=== PATIENT | male | born 1985 | race Caucasian/White ===

== ENCOUNTER → 2018-12-24 | Outpatient (CLI) | payer OTHER, SELFPAY ==
--- NOTE | 2018-12-24 14:30 | REP ---
Clinical: Trauma. Technique: AP, lateral, bilateral oblique views left wrist . Findings: The carpal bones, surrounding osseous structures, soft tissues, and joint spaces are normal. There is no evidence for acute fracture or dislocation. No subcutaneous emphysema or radiodense foreign body. Impression: Normal wrist series. No acute fracture or dislocation Electronically Signed by Nikko Lieberman MD 12/24/2018 02:21 P
== END ==
LOC: M LRY 14:02
PROVIDERS: ATTEND Nurse Practitioner Family
DX: S69.92XA Unspecified injury of left wrist, hand and finger(s), initial encounter (principal); X58.XXXA Exposure to other specified factors, initial encounter; Y92.89 Other specified places as the place of occurrence of the external cause

== ENCOUNTER → 2021-02-21 | Outpatient (CLI) | payer OTHER ==
--- NOTE | 2021-02-21 12:28 | REP ---
INDICATION: PAIN RIGHT KNEE. COMPARISON: None. TECHNIQUE: [place] view along with weightbearing AP and lateral views of the right knee FINDINGS: Increased sclerosis along the medial tibial plateau with joint space narrowing noted. Lateral and sunrise views demonstrate increased sclerosis along the anterior and posterior patellar margin marginal spurring and calcification at the quadriceps tendon insertion. No acute fracture or dislocation. No definite effusion. IMPRESSION: Moderate osteoarthritic degenerative changes. <Electronically signed by Nikko Lieberman > 02/21/21 [id number]
== END ==
LOC: M SOG 08:23
PROVIDERS: ATTEND Orthopaedic Surgery Adult Reconstructive Orthopaedic Surgery
DX: M25.561 Pain in right knee (principal); M17.11 Unilateral primary osteoarthritis, right knee

== ENCOUNTER → 2021-03-05 | Outpatient (CLI) | payer BC ==
--- NOTE | 2021-03-05 13:55 | REP ---
INDICATION: UNSP INTERNAL DERANGEMENT OF RT KNEE. COMPARISON: None TECHNIQUE: Sagittal spin-echo proton density, T2 STIR and T2 FLASH. Coronal spin-echo proton density and fat suppressed proton density. Axial fat suppressed proton density. FINDINGS: There is a single focus of grade 3 signal change in the superior tibial surface of the posterior horn of the medial meniscus. The anterior horn is within normal limits. The anterior and posterior horns of the lateral meniscus are within normal limits. The anterior and posterior cruciate ligaments are intact. The quadriceps and patellar tendons are intact. The medial and lateral collateral ligaments are intact. The medial and lateral patellar retinacula are intact. There is a slight joint effusion. There is no Chin's cyst. There is mild thinning of the articular cartilages. Significant motion artifact on the T2 coronal images obscures the detail. Seen in the posterior knee joint there is a 1 cm sized signal void. IMPRESSION: 1. There is evidence of a slight tear involving the posterior horn of the medial meniscus. 2. Mild tricompartmental chondromalacia. 3. 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 4. There is a slight joint effusion. 5. Other findings and limitations as described above. <Electronically signed by Art Christopher > 03/05/21 [id number]
== END ==
LOC: M PLARAD 07:48
PROVIDERS: ATTEND Orthopaedic Surgery Adult Reconstructive Orthopaedic Surgery
DX: M23.91 Unspecified internal derangement of right knee (principal); M94.261 Chondromalacia, right knee; M25.461 Effusion, right knee; D16.21 Benign neoplasm of long bones of right lower limb

== ENCOUNTER 2023-04-30 07:52 | Emergency (ER) | payer BC ==
[~2023-04-30] VITALS: Ht 180.3 cm; Wt 137.0 kg
[2023-04-30] MEDS ORDERED: IBUP200T46 PO (08:05)
[2023-04-30] MEDS ORDERED: MORPHINE 4 MG/ML 1ML VIAL IV ONE (08:30)
[2023-04-30] MEDS ORDERED: METHOCARBAMOL 1,000 MG/10 ML VIAL IV ONE (08:30)
[2023-04-30 09:15] LABS: BASO % 0.5 % (0.0-1.0); EOS # 0.5 10^3/uL (0.0-0.5); EOS % 6.4 % (0.0-3.0); HEMATOCRIT 46.6 % (42.0-52.0); HEMOGLOBIN 16.3 g/dl (13.5-17.5); LYMPH # 3.1 10^3/uL (1.5-5.0); LYMPH % 39.4 % (24.0-44.0); MEAN CORPUSCULAR HEMOGLOBIN 30.9 pg (27.0-33.0); MEAN CORPUSCULAR VOLUME 88.4 fl (80.0-96.0); MONO # 0.5 10^3/uL (0.0-0.8); MONO % 6.8 % (2.0-8.0); NEUTROPHILS # 3.7 10^3/uL (1.5-8.5); NEUTROPHILS % 46.5 % (36.0-66.0); PLATELET COUNT, AUTOMATED 204 10^3/uL (150-450); RED BLOOD COUNT 5.27 10^6/uL (4.30-6.10); WHITE BLOOD COUNT 7.9 10^3/uL (4.0-10.0)
[2023-04-30 09:37] LABS: ERYTHROCYTE SEDIMENTATION RATE 11 mm/hr (0-15)
[2023-04-30 09:38] LABS: ALBUMIN 4.3 G/DL (3.2-5.2); BILIRUBIN,DIRECT 0.2 MG/DL (<0.4); BILIRUBIN,TOTAL 1.2 MG/DL (0.3-1.2); C REACTIVE PROTEIN QUANTITATIV 0.5 MG/DL (<1.0); TOTAL PROTEIN 7.6 G/DL (5.7-8.2)
[2023-04-30] MEDS ORDERED: LIDOCAINE 5% (LIDODERM) PATCH TD ONE (10:50)
[2023-04-30] MEDS ORDERED: METH-1165 PO (12:01)
[2023-04-30] MEDS ORDERED: PRED20TA PO (12:01)
[2023-04-30] MEDS ORDERED: LIDO5DIS41 TD (12:01)
[2023-04-30] MEDS ORDERED: PERC5TAB12 PO (12:04)
[2023-04-30 12:18] VITALS: BP 143/83; TEMP 97.1; O2SAT 96
== END 2023-04-30 12:20 | disposition home or self-care (01) ==
LOC: M ED 07:52
DX: M51.16 Intervertebral disc disorders with radiculopathy, lumbar region (principal); M24.9 Joint derangement, unspecified; E66.9 Obesity, unspecified; M48.061 Spinal stenosis, lumbar region without neurogenic claudication; M25.78 Osteophyte, vertebrae; Z88.0 Allergy status to penicillin; Z88.1 Allergy status to other antibiotic agents; Z88.8 Allergy status to other drugs, medicaments and biological substances; Z91.02 Food additives allergy status
CPT/HCPCS: 72148; 73502; 80047; 80076; 83605; 85025; 85652; 86140; 87040; 96374; 96375; 99284; J2800

== ENCOUNTER → 2023-06-05 | Outpatient (REF) | payer BC ==
[~2023-06-05] MED LIST: IBUP200T46 PO; LIDO5DIS41 TD; METH-1165 PO; PERC5TAB12 PO; PRED20TA PO
[2023-06-07 08:08] LABS: LDL DIRECT 111 mg/dL (0-99)
== END ==
LOC: M LAB REF 16:24
PROVIDERS: ATTEND Physician Assistant Medical
DX: E78.1 Pure hyperglyceridemia (principal)

== ENCOUNTER 2023-09-03 00:53 | Emergency (ER) | payer BC ==
[~2023-09-03] VITALS: Ht 180.3 cm; Wt 138.6 kg
[2023-09-03] MEDS ORDERED: KETOROLAC 30 MG/ML 1ML VIAL IV ONE (01:40)
[2023-09-03] MEDS ORDERED: METHOCARBAMOL 1,000 MG/10 ML VIAL IV ONE (01:40)
[2023-09-03] MEDS ORDERED: KETOROLAC 30 MG/ML 1ML VIAL As Ordered ONE (01:42)
[2023-09-03 05:44] VITALS: O2SAT 98
[2023-09-03] MEDS ORDERED: dexAMETHasone 20MG/5ML VIAL IV ONE (06:25)
[2023-09-03] MEDS ORDERED: IBUP-1022 PO (06:34)
[2023-09-03] MEDS ORDERED: PRED20TA PO (06:34)
[2023-09-03] MEDS ORDERED: METH-1164 PO (06:34)
[2023-09-03 07:27] VITALS: BP 159/91; TEMP 97.5
== END 2023-09-03 07:36 | disposition left against medical advice (07) ==
LOC: M ED 00:53
DX: M54.32 Sciatica, left side (principal); Z88.0 Allergy status to penicillin; Z88.1 Allergy status to other antibiotic agents; Z91.048 Other nonmedicinal substance allergy status; Z79.1 Long term (current) use of non-steroidal anti-inflammatories (NSAID); Z79.52 Long term (current) use of systemic steroids; Z79.899 Other long term (current) drug therapy
CPT/HCPCS: 96374; 96375; 99284; J1100; J1885; J2800

== ENCOUNTER → 2024-11-07 | Outpatient (CLI) | payer OTHER ==
[~2024-11-07] MED LIST changes: +IBUP-1022 PO; +METH-1164 PO
== END ==
LOC: M RAD 07:39
PROVIDERS: ATTEND Physician Assistant Medical
DX: E80.7 Disorder of bilirubin metabolism, unspecified (principal); R16.0 Hepatomegaly, not elsewhere classified; K76.0 Fatty (change of) liver, not elsewhere classified